=== PATIENT | male | born 1980 | race American Indian/Alaskan Native ===

== ENCOUNTER 2018-05-29 19:44 | Emergency (ER) | payer BC ==
[2018-05-29 20:18] LABS: Hematocrit 42.7 % (35.5-45.6); Hemoglobin 13.9 gm/dl (11.8-15.2); Mean Corpuscular HGB Conc 33 % (32-34); Mean Corpuscular Volume 78 fl (84-94); Platelet Count 171 K/mm3 (140-440); Red Blood Count 5.48 M/mm3 (3.65-5.03); Red Cell Distribution Width 14.2 % (13.2-15.2)
[2018-05-29 20:33] LABS: BUN/Creatinine Ratio 11; Blood Urea Nitrogen 12 mg/dL (9-20); Calcium 8.9 mg/dL (8.4-10.2); Hemolysis Index 63
--- NOTE | 2018-05-29 20:39 | Emergency Department Report ---
ED Seizure HPI - General Chief Complaint: Seizure Stated Complaint: ALTERED MENTAL STATUS Time Seen by Provider: 05/29/18 20:10 Source: patient, RN/MD Mode of arrival: Wheelchair Limitations: Altered Mental Status - History of Present Illness Initial Comments: 38-year-old male with history of seizures presents to ED following a witnessed seizure. The patient began having diffuse conversation, purposeful Atrovent hand, and he began staring off a wall. The nurses attempted to place patient in a chair, however that time he became uncooperative and removed his shirt. Patient was brought to the ED and seemed to be postictal, asking same questions over and over. Patient is currently at baseline. Reports he has been compliant with his Depakote. He denies any recent illness, fever, vomiting. Patient is unsure what may have triggered his seizure today. No complaints at this time. 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) Associated Symptoms: denies other symptoms Treatments Prior to Arrival: none - Related Data Allergies Allergy/AdvReac Type Severity Reaction Status Date / Time No Known Allergies Allergy Unverified 05/29/18 19:57 ED Review of Systems ROS: Stated complaint: ALTERED MENTAL STATUS Other details as noted in HPI Comment: All other systems reviewed and negative Constitutional: denies: chills, fever Respiratory: denies: shortness of breath Cardiovascular: denies: chest pain Gastrointestinal: denies: abdominal pain, vomiting, diarrhea Neurological: denies: headache ED Past Medical Hx - Past Medical History Previous Medical History?: Yes 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 Absent: respiratory distress - Cardiovascular Cardiovascular Exam: Present: regular rate, normal rhythm - GI/Abdominal GI/Abdominal exam: Present: soft. Absent: distended, tenderness - Extremities Exam Extremities exam: Present: normal inspection, full ROM - Neurological Exam Neurological exam: Present: alert, oriented X3, CN II-XII intact. Absent: motor sensory deficit - Psychiatric Psychiatric exam: Present: normal affect, normal mood - Skin Skin exam: Present: warm, dry, intact, normal color ED Course Vital Signs 05/29/18 05/29/18 05/29/18 19:59 20:00 20:03 Temperature 98.7 F Pulse Rate 87 87 Respiratory 16 13 Rate Blood Pressure 141/89 O2 Sat by Pulse 97 99 Oximetry - Reevaluation(s) Reevaluation #1: 05/29/18 21:30 Pt remains A&O x 3. No further seizure activity here in ED. Labs normal, including depakote level. Will d/c at this time. at bedside. ED Medical Decision Making - Lab Data Result diagrams: 05/29/18 20:12 05/29/18 20:12 - Differential Diagnosis breakthrough seizure, electrolyte abnormality,nontherapeutic depakote level Critical care attestation.: If time is entered above; I have spent that time in minutes in the direct care of this critically ill patient, excluding procedure time. ED Disposition Clinical Impression: Seizure Disposition: DC-01 TO HOME OR SELFCARE Is pt being admited?: No Condition: Stable Instructions: Recurrent Seizures Adult (ED) Referrals: PRIMARY CARE, [Referring] - 3-5 Days Forms: Work/School Release Form(ED) Time of Disposition: 21:31
[2018-05-29 22:26] VITALS: BP 124/78
== END 2018-05-29 22:15 | disposition home or self-care (01) ==
LOC: ED 19:44
DX: G40.909 Epilepsy, unspecified, not intractable, without status epilepticus (principal)
CPT/HCPCS: 36415; 80048; 80164; 85027; 99283